=== PATIENT | male | born 1945 | race Caucasian/White ===

== ENCOUNTER → 2017-01-31 | Outpatient (CLI) | payer MEDICARE, BC ==
[~2017-01-31] MED LIST: ASPIR 8181 M1 PO; ASPIRIN E.C.81 M1 PO; LIPITOR20 MG PO; LIPITOR40 MG PO; TOPROL XL50 MG PO; Toprol XL PO; VIBRAMYCIN100 M2 PO
== END | disposition home or self-care (01) ==
LOC: CDC 15:09
DX: I49.1 Atrial premature depolarization (principal)
CPT/HCPCS: 93000